=== PATIENT | female | born 1955 | race Caucasian/White ===

== ENCOUNTER 2025-03-05 10:52 | Emergency (ER) | payer MEDICAID ==
[~2025-03-05] VITALS: Ht 165.1 cm; Wt 57.0 kg
[2025-03-05 11:00] VITALS: O2SAT 99
[2025-03-05 11:29] LABS: BASOPHILS % 0.6 % (0.0-2.0); EOSINOPHILS % 1.8 % (0.0-5.0); HEMATOCRIT. 47.4 % (36.0-48.0); HEMOGLOBIN. 16.0 g/dL (12.0-16.0); LYMPHOCYTES % 18.7 % (20.0-50.0); MEAN PLATELET VOLUME 8.1 fl (7.4-10.4); MONOCYTES % 10.3 % (2.0-8.0); NEUTROPHILS % 68.6 % (40.0-76.0); PLATELET 188 x1000/uL (130-400); RED BLOOD CELL COUNT 5.04 mill/uL (4.2-5.4); RED CELL DISTRIBUTION WIDTH 13.4 % (11.6-14.6)
[2025-03-05 11:46] LABS: INR 0.9
[2025-03-05 11:52] LABS: CREATININE 1.2 mg/dL (0.6-1.0); UREA NITROGEN BLOOD 21.0 mg/dL (9-23)
[2025-03-05 11:54] LABS: TROPONIN I HIGH SENSITIVITY < 4 ng/L (3.0-34)
[2025-03-05] MEDS: IOHEXOL-350 100 ML BOTTLE ONE (15:30)
[2025-03-05 16:02] VITALS: BP 136/84; PULSE 76; RESP 19; TEMP 36.9; O2SAT 100
[2025-03-05] MEDS ORDERED: MAGNESIUM/ALUMINUM HYDROXIDE/SIMETHICONE 30ML UDC PO PRN (16:30)
[2025-03-05] MEDS ORDERED: ACETAMINOPHEN 325MG TABLET PO PRN (16:30)
[2025-03-05] MEDS ORDERED: ONDANSETRON HCL 4MG/2ML INJ IV PRN (16:30)
[2025-03-05] MEDS ORDERED: MORPHINE SULFATE 2 MG/ML INJ (NOT FOR IM USE) IV PRN (16:30)
[2025-03-05] MEDS ORDERED: CLONIDINE 0.1MG TABLET PO PRN (16:30)
[2025-03-05] MEDS ORDERED: ZOLPIDEM TARTRATE 5MG TABLET PO PRN (16:30)
[2025-03-05] MEDS ORDERED: HYDROCODONE/ACETAMINOPHEN 5/325MG TABLET PO PRN (16:30)
[2025-03-05] MEDS ORDERED: NALOXONE HCL 0.4MG/ML VIAL IV PRN (16:45)
[2025-03-05] MEDS ORDERED: ENOXAPARIN 40MG/0.4ML SYR SUBCUT SCH (17:00)
[2025-03-05] MEDS ORDERED: ATORVASTATIN CALCIUM 40MG TABLET PO SCH (21:00)
[2025-03-06] MEDS ORDERED: PANTOPRAZOLE SODIUM 40 MG/VIAL IV SCH (09:00)
[2025-03-06] MEDS ORDERED: ASPIRIN 81MG EC TABLET PO SCH (09:00)
== END 2025-03-05 16:03 | disposition left against medical advice (07) ==
LOC: ER 10:52 → EDBEDREQSVC 15:16 → EDBEDREQ 15:16 → EDBEDREQTM 15:16 → CANRESERV 15:34 → ENRESERV 15:34 → CANBEDREQ 15:48 → ER 16:03
DX: H54.61 Unqualified visual loss, right eye, normal vision left eye (principal); R51.9 Headache, unspecified; I10 Essential (primary) hypertension; Z98.890 Other specified postprocedural states
CPT/HCPCS: 99285; 70496; 80048; 85025; 85610; 84484; 36415; 70498; 93005; 70450; Q9967